=== PATIENT | female | born 1955 | race Caucasian/White ===

== ENCOUNTER 2016-06-14 04:25 | Emergency (ER) | payer OTHER ==
[~2016-06-14] VITALS: Ht 167.6 cm; Wt 77.2 kg
[2016-06-14 04:42] VITALS: BP 122/67; PULSE 84; RESP 18; TEMP 97.8; O2SAT 98
--- NOTE | 2016-06-14 05:06 | PD ---
HPI Chief Complaint: Psychiatric Symptoms Time Seen by Provider: 05:03 Travel History International Travel<30 days: No Contact w/Intl Traveler<30days: No Traveled to known affect area: No History of Present Illness HPI 61yo F with PMH of NIDDM and HTN presents to the ED under stein act because she made statements stating she wants to to her friends. However, pt was drinking and states that she has been depressed since her and she lost her house. Denies any complaints. Denies any chest pain, sob, n/v, abdominal pain, weakness, numbness, fall or overdose. Admits to drinking tonight but denies any drugs. PFSH Past Medical History Diabetes: Yes Patient Takes Glucophage: No (REFUSES TO TAKE MEDS) Diminished Hearing: No Gastrointestinal Disorders: Yes (HX COLITIS) Tetanus Vaccination: Unknown Influenza Vaccination: No ?: Not Past Surgical History Surgical History: No Previous Surgery Social History Alcohol Use: Yes (OCCASIONALLY) Tobacco Use: Yes (1 PPD) Substance Use: No Allergies-Medications (Allergen,Severity, Reaction): Coded Allergies: No Known Allergies (Unverified , 06/14/16) Reported Meds & Prescriptions Reported Meds & Active Scripts Active No Active Prescriptions or Reported Medications Review of Systems Except as stated in HPI: all other systems reviewed are Neg Physical Exam Narrative GENERAL: 61yo F not in distress. +AOB. SKIN: Focused skin assessment warm/dry. HEAD: Atraumatic. Normocephalic. EYES: Pupils equal and round. No scleral icterus. No injection or drainage. ENT: No nasal bleeding or discharge. Mucous membranes pink and moist. NECK: Trachea midline. No JVD. CARDIOVASCULAR: Regular rate and rhythm. No murmur appreciated. RESPIRATORY: No accessory muscle use. Clear to auscultation. Breath sounds equal bilaterally. GASTROINTESTINAL: Abdomen soft, non-tender, nondistended. No rebound tenderness or guardign. MUSCULOSKELETAL: No obvious deformities. No clubbing. No cyanosis. No edema. NEUROLOGICAL: Awake and alert. No obvious cranial nerve deficits. Motor grossly within normal limits. Normal speech. Data Data Last Documented VS Vital Signs Date Time Temp Pulse Resp B/P Pulse Ox O2 Delivery O2 Flow Rate FiO2 06/14/16 04:42 97.8 84 18 122/67 98 Orders Complete Blood Count With Diff (06/14/16 05:03) Comprehensive Metabolic Panel (06/14/16 05:03) Urinalysis - C+S If Indicated (06/14/16 05:03) Psych Screen (06/14/16 05:03) Drug Screen, Random Urine (06/14/16 05:03) Alcohol (Ethanol) (06/14/16 05:03) Salicylates (Aspirin) (06/14/16 05:03) Tylenol (Acetaminophen) (06/14/16 05:03) Labs Laboratory Tests Test 06/14/16 06/14/16 05:00 05:40 White Blood Count 10.4 TH/MM3 Red Blood Count 4.75 MIL/MM3 Hemoglobin 13.1 GM/DL Hematocrit 38.6 % Mean Corpuscular Volume 81.4 FL Mean Corpuscular Hemoglobin 27.6 PG Mean Corpuscular Hemoglobin 33.9 % Concent Red Cell Distribution Width 13.3 % Platelet Count 236 TH/MM3 Mean Platelet Volume 8.3 FL Neutrophils (%) (Auto) 60.6 % Lymphocytes (%) (Auto) 29.8 % Monocytes (%) (Auto) 6.1 % Eosinophils (%) (Auto) 2.8 % Basophils (%) (Auto) 0.7 % Neutrophils # (Auto) 6.3 TH/MM3 Lymphocytes # (Auto) 3.1 TH/MM3 Monocytes # (Auto) 0.6 TH/MM3 Eosinophils # (Auto) 0.3 TH/MM3 Basophils # (Auto) 0.1 TH/MM3 CBC Comment AUTO DIFF Differential Total Cells 100 Counted Neutrophils % (Manual) 64 % Lymphocytes % 27 % Monocytes % 4 % Eosinophils % 3 % Neutrophils # (Manual) 6.9 TH/MM3 Metamyelocytes 2 % Differential Comment FINAL DIFF MANUAL Platelet Estimate NORMAL Platelet Morphology Comment NORMAL Sodium Level 133 MEQ/L Potassium Level 4.5 MEQ/L Chloride Level 101 MEQ/L Carbon Dioxide Level 24.9 MEQ/L Anion Gap 7 MEQ/L Blood Urea Nitrogen 15 MG/DL Creatinine 1.04 MG/DL Estimat Glomerular Filtration 54 ML/MIN Rate Random Glucose 180 MG/DL Calcium Level 9.0 MG/DL Total Bilirubin 0.3 MG/DL Aspartate Amino Transf 13 U/L (AST/SGOT) Alanine Aminotransferase 16 U/L (ALT/SGPT) Alkaline Phosphatase 79 U/L Total Protein 7.5 GM/DL Albumin 3.9 GM/DL Salicylates Level 3.7 MG/DL Acetaminophen Level LESS THAN 2.0 MCG/ML Ethyl Alcohol Level 116 MG/DL Urine Color COLORLESS Urine Turbidity CLEAR Urine pH 6.0 Urine Specific [place] 1.002 Urine Protein NEG mg/dL Urine Glucose (UA) NEG mg/dL Urine Ketones NEG mg/dL Urine Occult Blood NEG Urine Nitrite NEG Urine Bilirubin NEG Urine Urobilinogen LESS THAN 2.0 MG/DL Urine Leukocyte Esterase NEG Urine RBC LESS THAN 1 /hpf Urine WBC LESS THAN 1 /hpf Urine Bacteria RARE /hpf Urine Mucus FEW /lpf Microscopic Urinalysis Comment CULT NOT INDICATED Urine Opiates Screen NEG Urine Barbiturates Screen NEG Urine Amphetamines Screen NEG Urine Benzodiazepines Screen NEG Urine Cocaine Screen NEG Urine Cannabinoids Screen NEG MDM Medical Decision Making Medical Screen Exam Complete: Yes Emergency Medical Condition: Yes Differential Diagnosis Alcohol intoxication vs. depression Narrative Course 61yo F here under stein act because she stated she wanted to hurt herself. Labs reviewed, no leukocytosis. Glucose 180. Alcohol 116. Acetaminophen negative. Utox negative. UA negative. Pt is medically clear for psych evaluation. Diagnosis Primary Impression: Depression Qualified Code: F32.9 - Depression, unspecified depression type Scripts No Active Prescriptions or Reported Meds Alicia Huber DO Jun 14, 2016 05:06
[2016-06-14 05:30] LABS: AUTOMATED NEUTROPHIL # 6.3 TH/MM3 (1.8-7.7); BASOPHIL # 0.1 TH/MM3 (0-0.2); BASOPHIL % 0.7 % (0.0-2.0); EOSINOPHIL # 0.3 TH/MM3 (0-0.4); EOSINOPHIL % 2.8 % (0.0-4.0); HEMATOCRIT 38.6 % (35.0-46.0); LYMPH % 29.8 % (9.0-44.0); LYMPHOCYTE # 3.1 TH/MM3 (1.0-4.8); MEAN CELL VOLUME 81.4 FL (80.0-100.0); MEAN CORPUSCULAR HEMOGLOBIN 27.6 PG (27.0-34.0); MEAN CORPUSCULAR HGB CONC 33.9 % (32.0-36.0); MONO % 6.1 % (0.0-8.0); NEUT % 60.6 % (16.0-70.0); PLATELET COUNT 236 TH/MM3 (150-450); RED BLOOD COUNT 4.75 MIL/MM3 (4.00-5.30); RED CELL DISTRIBUTION WIDTH 13.3 % (11.6-17.2); WHITE BLOOD COUNT 10.4 TH/MM3 (4.0-11.0)
[2016-06-14 05:31] LABS: HEMO FLAGS AUTO DIFF
[2016-06-14 05:54] LABS: ALT (GPT) 16 U/L (10-53); ANION GAP 7 MEQ/L (5-15); AST (GOT) 13 U/L (15-37); BICARBONATE 24.9 MEQ/L (21.0-32.0); BLOOD UREA NITROGEN 15 MG/DL (7-18); CHLORIDE 101 MEQ/L (98-107); GLOMERULAR FILTRATION RATE 54 ML/MIN (>89); POTASSIUM 4.5 MEQ/L (3.5-5.1); SODIUM (NA) 133 MEQ/L (136-145)
[2016-06-14 05:57] LABS: ALKALINE PHOSPHATASE 79 U/L (45-117); TOTAL BILIRUBIN ADULT 0.3 MG/DL (0.2-1.0)
[2016-06-14 06:03] LABS: BACTERIA, URINE RARE /hpf; BLOOD, URINE NEG (NEG); COMMENT (UR) CULT NOT INDICATED; CULTURE IF INDICATED CULT NOT INDICATED; GLUCOSE,URINE NEG (NEG); KETONE, URINE NEG (NEG); MUCUS URINE FEW /lpf (OCC); NITRITE,URINE NEG (NEG); URINE COLOR COLORLESS (YELLW/STRAW)
[2016-06-14 06:03] LABS: ACETAMINOPHEN LESS THAN 2.0 MCG/ML (10.0-30.0)
[2016-06-14 06:09] LABS: AMPHETAMINE, URINE NEG (NEG); BARBITURATES, URINE NEG (NEG); COCAINE, URINE NEG (NEG)
[2016-06-14 06:31] LABS: EOSINOPHILS 3 % (0-4); METAMYELOCYTES 2 % (0-1); NEUTROPHIL # MANUAL DIFF 6.9 TH/MM3 (1.8-7.7); POLYS (SEG NEUTROPHILS) 64 % (16-70); WBC DIFF SAMPLE 100
[2016-06-14 06:32] LABS: PLATELET ESTIMATE SMEAR NORMAL (NORMAL); PLATELET MORPHOLOGY NORMAL (NORMAL); SCAN/DIFF FINAL DIFF MANUAL
[2016-06-14 09:15] VITALS: BP 95/54; PULSE 89; RESP 18; O2SAT 96
[2016-06-14 10:46] VITALS: BP 125/70; PULSE 80; RESP 18; O2SAT 98
--- NOTE | 2016-06-14 16:06 | MB ---
cc: OMAR LIPSCOMB MD DATE OF CONSULTATION: 06/14/2016 PHYSICIAN REQUESTING CONSULTATION Emergency department REASON FOR CONSULTATION Villagran Act. HISTORY OF PRESENT ILLNESS: Ms. Rogers is a 61 year-old female with no known past psychiatric history who presents under a Villagran Act from [employer], alleging that the patient was highly intoxicated and said that she wanted to kill herself by taking a bunch of pills. Alcohol level on presentation here was 116. Reviewing the electronic medical record, it appears that this is patient's first visit to [facility]. The patient is seen and examined. Chart reviewed. Case discussed with nurse in the J pod. There has been no evidence of any suicidal or homicidal behavior while under observation in the J pod. On my evaluation today, the patient appears to be euthymic and I can elicit no depressive or hypomanic/manic symptoms. She adamantly denies any suicidal or homicidal ideation, intent or plan. She is future oriented. She denies audiovisual hallucinations and I can elicit no delusional beliefs. She says that she made the statements while she was intoxicated and recants them completely now that she is sober. The remainder of the psychiatric ROS is negative. The patient is requesting discharge from the psychiatric emergency room today. Nursing staff has obtained reassuring collateral from the patient's roommate to the effect that he has no safety concerns about the patient being discharged from the ED today. PAST PSYCHIATRIC HISTORY The patient denies a history of psychiatric diagnosis. She denies a history of psychiatric admissions or suicide attempts. FAMILY HISTORY The patient denies any family history of mental illness. CHEMICAL DEPENDENCY HISTORY: The patient reports that she only drinks infrequently and maintains that she only had a few drinks last night. She denies any other substance use besides tobacco. SOCIAL HISTORY The patient reports that she lives with a friend. Her in 2013. She does have a son. She collects a pension from her . She got her GED. Denies any or legal history. Denies any access to guns or firearms. She believes in God. PAST MEDICAL HISTORY Includes diabetes and chronic pain issues. REVIEW OF SYSTEMS No reported headache, vision or hearing changes, chest pain, shortness of breath, bowel or bladder issues. No other physical complaints. PHYSICAL EXAMINATION VITAL SIGNS: Temperature is 97.8, pulse 80, respirations 18, blood pressure 125/70, pulse oximetry 98% on room air. A physical examination was completed in the ED by the ED provider and the patient was medically cleared. On my examination today, the patient appears to be in no acute physical distress. No motoric abnormalities noted. No signs of withdrawal noted. LABORATORY DATA: Reviewed: CBC is unremarkable. CMP is significant for mild hyponatremia, decreased GFR. Toxicology negative. Alcohol level 116. Urinalysis fairly bland. MENTAL STATUS EXAMINATION: The patient is in hospital gown. She is well groomed and maintaining basic hygiene. She is awake, alert and oriented x3. No evidence of delirium. No abnormal motor movements noted. Speech is within normal limits for rate, tone and volume. Language and fund of knowledge seem average. Mood is fair and affect is full and reactive. Thought process linear. No loosening of associations. No evident delusions. Denies audiovisual hallucinations. Denies suicidal or homicidal ideation. Insight and judgment are fair. ASSESSMENT/PLAN 1. Alcohol abuse with intoxication, intoxication now resolved, F10.120. This is a 61-year-old female with psychiatric history as detailed above who presents under a Villagran Act. Now that she is clinically sober, the patient denies any suicidal or homicidal ideation, intent or plan. I can detect no unstable mood, anxiety or psychotic disorder in this patient at this time. She appears to be attending to her basic needs. Synthesizing the above information, I terrazzo supervisor that the patient does not presently meet Villagran Act criteria. I have lifted the Villagran Act. The patient is requesting discharge from the psychiatric emergency room today. I have instructed the nursing staff to provide a chemical dependency referral. I have recommended that the patient pursue this. I have also counseled the patient regarding warning signs for need to return to the psychiatric emergency room as part of a general safety plan. The patient is psychiatrically clear for discharge from the ED. Thank you very much for this consultation. Omar Lipscomb DC/MARQUISE /3:17 PM /3:50 PM KARYNA
== END 2016-06-14 17:03 | disposition home or self-care (01) ==
LOC: NED 04:25 → NEPJ 17:03
DX: F32.9 Major depressive disorder, single episode, unspecified (principal); E11.9 Type 2 diabetes mellitus without complications; I10 Essential (primary) hypertension; F17.210 Nicotine dependence, cigarettes, uncomplicated; R45.851 Suicidal ideations; Y90.5 Blood alcohol level of 100-119 mg/100 ml
CPT/HCPCS: 80053; 80307; 81001; 85007; 85027; 99283